=== PATIENT | male | born 1975 | race African-American/Black ===

== ENCOUNTER 2024-04-05 03:11 | Emergency (ER) | payer OTHER ==
[~2024-04-05] VITALS: Ht 175.3 cm; Wt 93.0 kg
[2024-04-05] MEDS ORDERED: Robaxin750 MG PO (03:56)
[2024-04-05] MEDS ORDERED: CYCL10 PO ×2 (06:52→10:23)
[2024-04-05] MEDS ORDERED: Ketorolac Tromethamine 30mg Vial IM ONE (06:55)
[2024-04-05] MEDS ORDERED: Cyclobenzaprine HCl 10 MG Tab PO ONE (06:55)
== END 2024-04-05 07:15 | disposition home or self-care (01) ==
LOC: ER 03:11
DX: S39.012A Strain of muscle, fascia and tendon of lower back, initial encounter (principal); X58.XXXA Exposure to other specified factors, initial encounter
CPT/HCPCS: 96372; 99283-25; A9270; J1885